=== PATIENT | female | born 1945 | race Caucasian/White ===

== ENCOUNTER 2025-05-17 10:22 | Emergency (ER) | payer MEDICAID ==
[~2025-05-17] VITALS: Ht 154.9 cm; Wt 59.4 kg
[2025-05-17] MEDS ORDERED: KETOROLAC TROMETHAMINE 15 MG/ML VIAL ONE (10:51)
[2025-05-17] MEDS: KETOROLAC TROMETHAMINE 15 MG/ML VIAL IM ONE (10:57)
[2025-05-17] MEDS ORDERED: PRED50TA PO (11:21)
[2025-05-17 11:37] VITALS: BP 105/71; TEMP 98.2; O2SAT 95
== END 2025-05-17 11:40 | disposition home or self-care (01) ==
LOC: ER 10:30
DX: M54.50 Low back pain, unspecified (principal); E11.9 Type 2 diabetes mellitus without complications; Z88.0 Allergy status to penicillin; Z86.73 Personal history of transient ischemic attack (TIA), and cerebral infarction without residual deficits
CPT/HCPCS: 99283; 96372; 72110; J1885

== ENCOUNTER 2025-06-07 10:35 | Emergency (ER) | payer MEDICAID ==
[~2025-06-07] VITALS: Ht 154.9 cm; Wt 60.3 kg
[~2025-06-07 10:35] MED LIST: PRED50TA PO
[2025-06-07] MEDS ORDERED: ALBUTEROL FS 2.5 MG/3 ML VIAL.NEB ONE (12:24)
[2025-06-07] MEDS ORDERED: IPRATROPIUM NEB FS 0.5 MG/2.5 ML AMPUL.NEB ONE (12:24)
[2025-06-07 12:27] VITALS: O2SAT 96
[2025-06-07] MEDS: IPRATROPIUM NEB FS 0.5 MG/2.5 ML AMPUL.NEB NEB ONE (12:27)
[2025-06-07] MEDS: ALBUTEROL FS 2.5 MG/3 ML VIAL.NEB NEB ONE (12:27)
[2025-06-07 12:37] VITALS: O2SAT 99
[2025-06-07 12:51] LABS: PLATELET COUNT (AUTO) 440 K/uL (150-450); RED BLOOD CELL COUNT(AUTO) 4.17 MIL/uL (4.0-5.2); RED CELL DISTRIBUTION WIDTH 12.9 % (11.5-15.0); WHITE BLOOD COUNT (AUTO) 14.3 K/uL (4.3-11.0)
[2025-06-07 12:58] LABS: ASPARTATE AMINOTRANSFERASE 19 U/L (15-37); CALCIUM, SERUM 9.8 mg/dL (8.5-10.1); CREATININE 0.9 mg/dL (0.6-1.3); SODIUM SERUM 139 mmol/L (136-145); TOTAL PROTEIN, SERUM 7.2 g/dL (6.4-8.2); UREA NITROGEN, BLOOD 23 mg/dL (7-18)
[2025-06-07 13:47] VITALS: BP 134/64; TEMP 98.2; O2SAT 99
== END 2025-06-07 13:48 | disposition home or self-care (01) ==
LOC: ER 10:44
DX: J40 Bronchitis, not specified as acute or chronic (principal); I10 Essential (primary) hypertension; E11.9 Type 2 diabetes mellitus without complications; E78.5 Hyperlipidemia, unspecified; Z79.52 Long term (current) use of systemic steroids; Z87.891 Personal history of nicotine dependence; Z88.0 Allergy status to penicillin; Z20.822 Contact with and (suspected) exposure to COVID-19
CPT/HCPCS: 36415; 71045-TC; 80048-TC; 80076-TC; 83880; 84484-TC; 85025-TC